=== PATIENT | male | born 1955 | race Hispanic/Latino ===

== ENCOUNTER 2019-10-25 08:23 | Observation (INO) | payer BC ==
[~2019-10-25] VITALS: Ht 167.6 cm; Wt 80.2 kg
[2019-10-25] VITALS (10 sets, daily range): BP systolic 112–142; BP diastolic 54–78
[2019-10-25] MEDS ORDERED: SODIUM CHLORIDE 0.9% 1000ML 1,000 ML IV ONE (08:51)
[2019-10-25 09:08] LABS: BASOPHILS % (AUTO) 0.7 % (0.0-5.0); EOSINOPHILS % (AUTO) 2.3 % (0.0-8.0); HEMATOCRIT 43.3 % (42-54); LYMPHOCYTES % (AUTO) 30.2 % (21.0-51.0); MEAN CORPUSCULAR HEMOGLOBIN 29.5 pg (27.0-33.0); MEAN CORPUSCULAR HGB CONC 32.8 g/dL (32.0-36.0); MEAN CORPUSCULAR VOLUME 89.8 fL (79-99); MONOCYTES % (AUTO) 7.6 % (3.0-13.0); NEUTROPHILS % (AUTO) 58.9 % (40.0-77.0); PLATELET COUNT (AUTO) 252 K/uL (130-400); RED BLOOD CELL COUNT(AUTO) 4.82 MIL/uL (4.50-6.20); RED CELL DISTRIBUTION WIDTH 13.9 % (11.0-15.5); WHITE BLOOD COUNT (AUTO) 5.8 K/uL (4.8-10.8)
[2019-10-25 09:09] LABS: APPEARANCE,URINE Clear (CLEAR); BILIRUBIN,URINE Negative (NEGATIVE); COLOR,URINE Yellow (YELLOW); GLUCOSE, URINE (UA) >=1000 mg/dL (NEGATIVE); KETONES,URINE Negative (NEGATIVE); LEUKOCYTE ESTERASE ,URINE Negative (NEGATIVE); NITRATE,URINE Negative (NEGATIVE); OCCULT BLOOD,URINE Negative (NEGATIVE); PROTEIN,URINE Negative (NEGATIVE)
[2019-10-25 09:26] LABS: BACTERIA,URINE Rare /HPF (None Seen); RBC,URINE 0-1 /HPF (0-1); SQUAMOUS EPITHELIAL CELL,UR Rare /HPF (0-2); WBC,URINE 0-1 /HPF (0-1)
[2019-10-25 09:27] LABS: INR 0.99 (0.85-1.15); PARTIAL THROMBOPLASTIN TIME 26.3 SEC (26.3-35.5); PROTHROMBIN TIME 10.4 SEC (9.6-11.6)
[2019-10-25] MEDS ORDERED: ASPI-1181 PO (09:37)
[2019-10-25] MEDS ORDERED: NATE60TA8 PO (09:37)
[2019-10-25] MEDS ORDERED: METO-391 PO (09:37)
[2019-10-25] MEDS ORDERED: LISI-617 PO (09:37)
[2019-10-25] MEDS ORDERED: ISOS30TA6 PO (09:37)
[2019-10-25] MEDS ORDERED: DAPA5TAB PO (09:37)
[2019-10-25] MEDS ORDERED: FERR-82 PO (09:37)
[2019-10-25] MEDS ORDERED: SITA1TBM4 PO (09:37)
[2019-10-25] MEDS ORDERED: ROSU40TA21 PO (09:37)
[2019-10-25] MEDS ORDERED: NITR0.4T50 SL (09:37)
[2019-10-25 09:38] LABS: CREATININE 0.9 mg/dL (0.5-1.5); POTASSIUM 3.7 mmol/L (3.5-5.1)
[2019-10-25] MEDS ORDERED: IOHEXOL-350 50ML VIAL IV ONE (09:45)
[2019-10-25] MEDS ORDERED: NITROGLYCERIN 5 MG/ML 10 ML VIAL IV ONE (09:45)
[2019-10-25] MEDS ORDERED: IOHEXOL 350 MG/ML 100ML INFUS..BTL IV ONE ×2 (09:45→12:13)
[2019-10-25] MEDS ORDERED: HEPARIN SODIUM 1000UNIT/ML 10ML VIAL ONE (09:45)
[2019-10-25] MEDS ORDERED: LIDOCAINE HCL 2% 20ML ONE (09:45)
--- NOTE | 2019-10-25 11:35 | NUR ---
cathlab pt taken to laborer plumbing for scheduled procedure. family at bedside
[2019-10-25] MEDS ORDERED: NITROGLYCERIN 0.4 MG SL TAB SL PRN (12:45)
[2019-10-25] MEDS ORDERED: DEXTROSE 50%-WATER 50 ML DISP.SYRIN IV PRN (12:45)
[2019-10-25] MEDS ORDERED: GLUCAGON 1MG KIT 1 MG ML IM PRN (12:45)
[2019-10-25] MEDS: SODIUM CHLORIDE 0.9% 10 ML VIAL IVP SCH ×2 (12:45→20:45)
[2019-10-25] MEDS: INSULIN HUMULIN R 100 UNIT/ML 3ML SQ SCH ×2 (16:30→21:00)
[2019-10-25] MEDS: METOPROLOL TARTRATE 25 MG TAB PO SCH (20:00)
[2019-10-25] MEDS: ATORVASTATIN CALCIUM 40 MG TABLET PO SCH (20:00)
[2019-10-26] VITALS (12 sets, daily range): BP systolic 101–173; BP diastolic 50–81
[2019-10-26 04:25] LABS: BASOPHILS % (AUTO) 0.5 % (0.0-5.0); EOSINOPHILS % (AUTO) 2.4 % (0.0-8.0); HEMATOCRIT 41.3 % (42-54); LYMPHOCYTES % (AUTO) 26.3 % (21.0-51.0); MEAN CORPUSCULAR HEMOGLOBIN 28.7 pg (27.0-33.0); MEAN CORPUSCULAR HGB CONC 32.4 g/dL (32.0-36.0); MEAN CORPUSCULAR VOLUME 88.4 fL (79-99); MONOCYTES % (AUTO) 9.9 % (3.0-13.0); NEUTROPHILS % (AUTO) 60.6 % (40.0-77.0); PLATELET COUNT (AUTO) 219 K/uL (130-400); RED BLOOD CELL COUNT(AUTO) 4.67 MIL/uL (4.50-6.20); WHITE BLOOD COUNT (AUTO) 6.3 K/uL (4.8-10.8)
[2019-10-26 04:43] LABS: CREATININE 0.9 mg/dL (0.5-1.5); MAGNESIUM 1.8 mg/dL (1.80-2.40); PHOSPHORUS 3.7 mg/dL (2.5-4.9); POTASSIUM 3.6 mmol/L (3.5-5.1)
[2019-10-26] MEDS: SODIUM CHLORIDE 0.9% 10 ML VIAL IVP SCH (04:54)
[2019-10-26] MEDS: INSULIN HUMULIN R 100 UNIT/ML 3ML SQ SCH ×4 (05:53→21:00)
--- NOTE | 2019-10-26 06:12 | NUR ---
bp paged paged regarding k level of 3.6 production foreman simonizer returned page but call dropped production foreman simonizer repaged through answering service
[2019-10-26] MEDS ORDERED: LIDOCAINE HCL-MPF 1% 2ML VIAL IV PRN (06:45)
[2019-10-26] MEDS ORDERED: POTASSIUM CHLORIDE 20 MEQ ERTAB PO PRN (06:45)
[2019-10-26] MEDS ORDERED: POTASSIUM CHLORIDE 10% ELIXIR 20 MEQ/15 ML UDCUP PO PRN (06:45)
[2019-10-26] MEDS ORDERED: POTASSIUM CHLORIDE 20MEQ/100ML 100 ML IV PRN (06:45)
[2019-10-26] MEDS ORDERED: MAGNESIUM 2GM PREMIX 50ML 50 ML IV PRN (09:30)
[2019-10-26] MEDS: ASPIRIN 81 MG EC TAB PO SCH (09:42)
[2019-10-26] MEDS: LISINOPRIL 5 MG TABLET PO SCH (09:43)
[2019-10-26] MEDS: FERROUS SULFATE 325 MG TABLET.DR PO SCH (09:44)
[2019-10-26] MEDS: METOPROLOL TARTRATE 25 MG TAB PO SCH ×2 (09:44→21:22)
[2019-10-26] MEDS: ISOSORBIDE MONO 30MG TAB SR PO SCH (09:44)
[2019-10-26] MEDS: **HM** NATEGLINIDE 60MG PO SCH ×2 (10:14→21:00)
[2019-10-26] MEDS: **HM** FARXIGA 5MG PO SCH (10:15)
[2019-10-26] MEDS: JANUMET PO SCH ×2 (10:15→21:00)
[2019-10-26] MEDS ORDERED: SODIUM CHLORIDE 0.9% 1000ML 1,000 ML IV SCH (14:32)
--- NOTE | 2019-10-26 16:50 | NUR ---
TAKEN TO OUTPATIENT CODING SPECIALIST FOR EP STUDY
[2019-10-26] MEDS ORDERED: MIDAZOLAM HCL 1 MG/ML 2ML VIAL ONE (17:37)
[2019-10-26] MEDS ORDERED: MEPERIDINE-PF 25 MG/ML SYG ONE (17:37)
[2019-10-26] MEDS ORDERED: LIDOCAINE HCL 2% 20ML ONE (17:38)
[2019-10-26] MEDS: ATORVASTATIN CALCIUM 40 MG TABLET PO SCH (21:22)
[2019-10-27 03:00] VITALS: BP 123/72
[2019-10-27 05:18] LABS: BASOPHILS % (AUTO) 0.7 % (0.0-5.0); EOSINOPHILS % (AUTO) 2.8 % (0.0-8.0); HEMATOCRIT 43.6 % (42-54); LYMPHOCYTES % (AUTO) 27.7 % (21.0-51.0); MEAN CORPUSCULAR HEMOGLOBIN 28.8 pg (27.0-33.0); MEAN CORPUSCULAR HGB CONC 32.3 g/dL (32.0-36.0); MONOCYTES % (AUTO) 10.7 % (3.0-13.0); NEUTROPHILS % (AUTO) 57.8 % (40.0-77.0); PLATELET COUNT (AUTO) 220 K/uL (130-400); RED CELL DISTRIBUTION WIDTH 13.6 % (11.0-15.5); WHITE BLOOD COUNT (AUTO) 5.8 K/uL (4.8-10.8)
[2019-10-27 05:35] LABS: CREATININE 0.9 mg/dL (0.5-1.5); POTASSIUM 3.8 mmol/L (3.5-5.1)
[2019-10-27] MEDS: INSULIN HUMULIN R 100 UNIT/ML 3ML SQ SCH (06:58)
--- NOTE | 2019-10-27 08:26 | NUR ---
DR. Hardik JUAREZ IN ROOM SPEAKING WITH PT. RE:PLAN OF CARE; SPOUSE AND DAUGHTER AT BEDSIDE. QUESTIONS ANSWERED BY DR. JUAREZ.
[2019-10-27] MEDS: FERROUS SULFATE 325 MG TABLET.DR PO SCH (08:46)
[2019-10-27] MEDS: JANUMET PO SCH (08:47)
[2019-10-27] MEDS: ISOSORBIDE MONO 30MG TAB SR PO SCH (08:47)
[2019-10-27] MEDS: ASPIRIN 81 MG EC TAB PO SCH (08:47)
[2019-10-27] MEDS: METOPROLOL TARTRATE 25 MG TAB PO SCH (08:47)
[2019-10-27] MEDS: LISINOPRIL 5 MG TABLET PO SCH (08:47)
[2019-10-27] MEDS: **HM** NATEGLINIDE 60MG PO SCH (08:48)
[2019-10-27] MEDS: **HM** FARXIGA 5MG PO SCH (08:49)
[2019-10-27 09:17] VITALS: BP 121/52
--- NOTE | 2019-10-27 11:25 | NUR ---
GIVEN DISMISSAL INSTRUCTIONS, NO NEW SCRIPTS. VERBALIZED UNDERSTANDING. REMOVED TELE PACK, REMOVED SALINE LOCK FROM LEFT WRIST. IV SITE WITHOUT REDNESS NOTED. GAVE PATIENT COPY OF ORDER TO GO HAVE HOLTER MONITOR APPLIED AT [facility]. STATES HE IS ON HIS WAY TO CLINIC AFTER DISMISSAL.
--- NOTE | 2019-10-27 11:32 | NUR ---
TAKEN TO PRIVATE CAR ALONG WITH PERSONAL BELONGINGS VIA WHEELCHAIR BY SKIP BISHOP.
== END 2019-10-27 11:30 | disposition home or self-care (01) ==
LOC: DAH 08:23 → 2AH 08:24
PROVIDERS: ADMIT Internal Medicine Pulmonary Disease; ATTEND Internal Medicine Pulmonary Disease
DX: I47.2 Ventricular tachycardia (principal); I25.10 Atherosclerotic heart disease of native coronary artery without angina pectoris; I11.0 Hypertensive heart disease with heart failure; I50.20 Unspecified systolic (congestive) heart failure; E78.5 Hyperlipidemia, unspecified; I42.9 Cardiomyopathy, unspecified; I49.3 Ventricular premature depolarization; E11.9 Type 2 diabetes mellitus without complications; Z95.1 Presence of aortocoronary bypass graft; Z79.82 Long term (current) use of aspirin; Z79.84 Long term (current) use of oral hypoglycemic drugs; Z79.899 Other long term (current) drug therapy
CPT/HCPCS: 36415; 71045; 80048; 81001; 82948; 83735; 84100; 85025; 85610; 85730; 93005; 93459; 93620; 96365; 99156; 99157; A4606; C1730; C1769; C1894; G0378; J1644; J2175; J2250; J3475; J3490; J7030; Q9967